=== PATIENT | female | born 1955 | race Caucasian/White ===

== ENCOUNTER → 2018-01-07 | Outpatient (CLI) | payer MEDICARE | LOC: COL.RAD 09:34 | DX: M25.552 Pain in left hip (principal) | CPT/HCPCS: J3301; Q9967 ==

== ENCOUNTER → 2018-01-29 | Outpatient (CLI) | payer MEDICARE | LOC: COL.RAD 10:51 | DX: M87.052 Idiopathic aseptic necrosis of left femur (principal) ==

== ENCOUNTER → 2018-03-02 | Outpatient (CLI) | payer MEDICARE | LOC: COL.LAB 09:30 | DX: Z01.812 Encounter for preprocedural laboratory examination (principal) ==

== ENCOUNTER 2018-03-11 09:03 | Inpatient (IN) | payer MEDICARE ==
[~2018-03-11] VITALS: Ht 157.6 cm; Wt 70.0 kg
[2018-03-25] VITALS (12 sets, daily range): BP systolic 108–165; BP diastolic 51–83; PULSE 71–90; TEMP 97.9–98.7
[2018-03-25] MEDS ORDERED: TENORMIN100 MG PO (01:25)
[2018-03-25] MEDS ORDERED: BROVANA15 MCG/2 M IH (01:26)
[2018-03-25] MEDS ORDERED: PULMICORT0.5 MG/2 M IH (01:27)
[2018-03-25] MEDS ORDERED: IRON TABLETS325 MG PO (01:27)
[2018-03-25] MEDS ORDERED: FOLIC ACID 40400 MCG PO (01:28)
[2018-03-25] MEDS ORDERED: CLARISPRAY9.9 ML NS (01:28)
[2018-03-25] MEDS ORDERED: INCRUSE EL62.5 MCG/A IH ×2 (01:29→05:31)
[2018-03-25] MEDS ORDERED: SYNTHROID0.125 MG/T PO (01:30)
[2018-03-25] MEDS ORDERED: SYNTHROID0.112 MG/T PO (01:31)
[2018-03-25] MEDS ORDERED: PRINIVIL20 MG PO (01:32)
[2018-03-25] MEDS ORDERED: MIRAPEX 1MG PO (01:33)
[2018-03-25] MEDS ORDERED: PRAVACHOL 40MG40 MG PO (01:34)
[2018-03-25] MEDS ORDERED: ULTRAM 50MG TAB50 MG PO (01:35)
[2018-03-25] MEDS ORDERED: VITAMIN C500 MG PO (01:36)
[2018-03-25] MEDS ORDERED: VENTOLIN0.09 MG IH (01:36)
[2018-03-25] MEDS ORDERED: NEURONTIN300 MG/CAP PO (01:37)
[2018-03-25] MEDS ORDERED: ASPIRIN 81M81 MG/TA2 PO (05:28)
[2018-03-25] MEDS ORDERED: CEPHALEXIN250 M1 PO (05:29)
[2018-03-25] MEDS ORDERED: AZO-CRANBERRY450 MG PO (05:30)
[2018-03-26] VITALS (7 sets, daily range): BP systolic 109–140; BP diastolic 54–68; PULSE 76–93; TEMP 97.2–98.6
[2018-03-26 07:03] LABS: HEMOGLOBIN 11.5 g/dl (12.5-16.0)
[2018-03-26 07:05] LABS: HEMATOCRIT 34.9 % (37.0-47.0)
[2018-03-27 03:21] VITALS: BP 103/62; PULSE 87; TEMP 98.6
[2018-03-27 06:09] LABS: HEMOGLOBIN 10.6 g/dl (12.5-16.0)
[2018-03-27 06:18] LABS: HEMATOCRIT 32.3 % (37.0-47.0)
[2018-03-27 07:42] VITALS: BP 104/84; PULSE 93; TEMP 98.2
[2018-03-27 11:53] VITALS: BP 104/56; PULSE 102; TEMP 98.7
== END 2018-03-27 15:57 | disposition home health service (06) | DRG 470 ==
LOC: SURG 03-25 05:04 → JCC 03-25 07:30 → SURG 03-27 15:57
PROVIDERS: Orthopaedic Surgery Sports Medicine
PROC: 0SRB0JA Replacement of Left Hip Joint with Synthetic Substitute, Uncemented, Open Approach (ICD-10-PCS; principal; 2018-03-25 07:30)
DX: M87.852 Other osteonecrosis, left femur (principal); J43.9 Emphysema, unspecified; I10 Essential (primary) hypertension; Z87.891 Personal history of nicotine dependence; E78.5 Hyperlipidemia, unspecified; G47.33 Obstructive sleep apnea (adult) (pediatric)
CPT/HCPCS: A9284; C1776; J0690; J1100; J1200; J2250; J2704; J3010; J7120

== ENCOUNTER 2020-06-06 14:38 | Emergency (ER) | payer MEDICARE ==
[~2020-06-06] VITALS: Ht 157.5 cm; Wt 81.4 kg
[~2020-06-06 14:38] MED LIST: ASPIRIN 81M81 MG/TA2 PO; AZO-CRANBERRY450 MG PO; BROVANA15 MCG/2 M IH; CEPHALEXIN250 M1 PO; CLARISPRAY9.9 ML NS; FOLIC ACID 40400 MCG PO; INCRUSE EL62.5 MCG/A IH; IRON TABLETS325 MG PO; MIRAPEX 1MG PO; NEURONTIN300 MG/CAP PO; PRAVACHOL 40MG40 MG PO; PRINIVIL20 MG PO; PULMICORT0.5 MG/2 M IH; SYNTHROID0.112 MG/T PO; SYNTHROID0.125 MG/T PO; TENORMIN100 MG PO; ULTRAM 50MG TAB50 MG PO; VENTOLIN0.09 MG IH; VITAMIN C500 MG PO
[2020-06-06 17:23] VITALS: BP 148/68; PULSE 78; TEMP 97.2
== END 2020-06-06 17:24 | disposition home or self-care (01) ==
LOC: COL.ER 14:38
DX: S43.401A Unspecified sprain of right shoulder joint, initial encounter (principal); S01.511A Laceration without foreign body of lip, initial encounter; S80.211A Abrasion, right knee, initial encounter; S09.90XA Unspecified injury of head, initial encounter; I10 Essential (primary) hypertension; Z90.710 Acquired absence of both cervix and uterus; Z87.891 Personal history of nicotine dependence; Z88.0 Allergy status to penicillin; Z88.1 Allergy status to other antibiotic agents; Z79.51 Long term (current) use of inhaled steroids; Z79.890 Hormone replacement therapy; W00.9XXA Unspecified fall due to ice and snow, initial encounter